=== PATIENT | male | born 1955 | race Caucasian/White ===

== ENCOUNTER → 2017-06-03 | Outpatient (CLI) | payer BC ==
[~2017-06-03] MED LIST: ACYC400 PO; ASPI325 PO; ASPIRIN; CIPR500 PO; Colace100 MG PO; DOCU100 PO; HYDACE5 PO; INDO25 PO; IRBE150 PO; IRBE75 PO; IRBESARTAN300 MG PO; LACT10SY PO; LISHYD1012 PO; LISHYD2012; LISHYD2012 PO; LISI20 PO; MAGCIT300 PO; NORT25 PO; Percocet 5-3251 EACH PO; Protonix40 MG PO; SUMA25 PO; TERAZOSIN PO; VERA120 PO; VERAPAMIL; Zestril40 MG; Zofran Odt8 MG SL
[2017-06-03 13:54] LABS: Alanine Aminotransfer (ALT/SGP 57 U/L (12-78); Albumin/Globulin Ratio 1.3 (0.8-1.8); Alk Phos 61 U/L (50-136); Anion Gap 9 mmol/L (6-16); Aspartate Aminotrans (AST/SGOT 31 U/L (12-37); Bilirubin, Total 0.5 mg/dL (0.1-1.0); Blood Urea Nitrogen 21 mg/dL (8-24); CHOL/HDL RATIO 3.1; CO2, Blood 24 mmol/L (21-32); Calcium, Blood 8.4 mg/dL (8.5-10.1); Chloride, Blood 108 mmol/L (98-108); Cholesterol 104 mg/dL (50-200); Globulin, Blood 3.1 g/dL (2.2-4.0); Glucose, Blood 92 mg/dL (70-99); HDL Cholesterol 34 mg/dL (>39); LDL/HDL RATIO 1.7; Low Density Lipoprotein Chol 58 mg/dL (0-110); Potassium, Blood 3.7 mmol/L (3.5-5.5); Sodium, Blood 141 mmol/L (136-145); Total Protein, Blood 7.1 g/dL (6.4-8.2); Triglycerides 59 mg/dL (30-160); Very Low Density Lipoprot Chol 11 mg/dL (6-32)
[2017-06-03 14:01] LABS: Bun/Creatinine Ratio 18.8 (12.0-20.0); Creatinine, Blood 1.12 mg/dL (0.60-1.20); Glomerular Filtration Rate >60 (60-); Prostate Specific Antigen 0.762 ng/mL (0.000-4.000)
== END | disposition home or self-care (01) ==
LOC: LAB 11:51
PROVIDERS: Hospitalist
DX: Z12.5 Encounter for screening for malignant neoplasm of prostate (principal); I10 Essential (primary) hypertension; E11.9 Type 2 diabetes mellitus without complications
CPT/HCPCS: 80053; 80061; 82043; 83036; G0103

== ENCOUNTER → 2018-08-07 | Outpatient (CLI) | payer BC ==
[2018-08-07 14:13] LABS: Anion Gap 5 mmol/L (6-16); Blood Urea Nitrogen 17 mg/dL (8-24); Bun/Creatinine Ratio 21.8 (12.0-20.0); CO2, Blood 28 mmol/L (21-32); Calcium, Blood 8.9 mg/dL (8.5-10.1); Chloride, Blood 105 mmol/L (98-108); Creatinine, Blood 0.78 mg/dL (0.60-1.20); Glomerular Filtration Rate >60 (60-); Glucose, Blood 95 mg/dL (70-99); Potassium, Blood 4.1 mmol/L (3.5-5.5); Sodium, Blood 138 mmol/L (136-145)
== END | disposition home or self-care (01) ==
LOC: LAB SHORT 13:13 → LAB 13:13
PROVIDERS: Hospitalist
DX: N18.3 Chronic kidney disease, stage 3 (moderate) (principal); E87.6 Hypokalemia
CPT/HCPCS: 80048

== ENCOUNTER 2018-11-21 22:32 | Emergency (ER) | payer BC ==
[~2018-11-21] VITALS: Ht 177.8 cm; Wt 121.1 kg
[2018-11-21 23:44] LABS: BASOPHILS ABSOLUTE AUTO 0.09 K/mm3 (0.00-0.23); BASOPHILS PERCENT AUTO 1 % (0-2); EOSINOPHILS PERCENT AUTO 2 % (0-6); Hematocrit 46.3 % (37.0-53.0); Hemoglobin 15.6 g/dL (13.5-17.5); IMMATURE GRAN ABSOLUTE AUTO 0.06 K/mm3 (0.00-0.10); IMMATURE GRAN PERCENT AUTO 1 % (0-1); LYMPHOCYTES ABSOLUTE AUTO 0.98 K/mm3 (0.84-5.20); LYMPHOCYTES PERCENT AUTO 9 % (21-46); MONOCYTES ABSOLUTE AUTO 0.79 K/mm3 (0.16-1.47); MONOCYTES PERCENT AUTO 7 % (4-13); Mean Corpuscular HGB 29.6 pg (26.0-34.0); Mean Corpuscular HGB Conc 33.7 g/dL (31.5-36.5); Mean Corpuscular Volume 88 fL (80-100); Mean Platelet Volume 10.2 fL (9.1-12.4); NEUTROPHILS ABSOLUTE AUTO 9.46 K/mm3 (1.96-9.15); NEUTROPHILS PERCENT AUTO 82 % (41-73); Platelet Count 263 K/mm3 (150-400); RDW Coefficient Variation 12.6 % (11.7-14.2); RDW Standard Deviation 40.6 fL (35.1-46.3); Red Blood Cell Count 5.27 M/mm3 (4.30-5.90); White Blood Cell Count 11.58 K/mm3 (4.00-11.30)
[2018-11-22 00:03] LABS: Alanine Aminotransfer (ALT/SGP 59 U/L (12-78); Albumin, Blood 4.4 g/dL (3.4-5.0); Albumin/Globulin Ratio 1.2 (0.8-1.8); Alk Phos 71 U/L (50-136); Anion Gap 7 mmol/L (6-16); Aspartate Aminotrans (AST/SGOT 41 U/L (12-37); Bilirubin, Total 0.5 mg/dL (0.1-1.0); Blood Urea Nitrogen 18 mg/dL (8-24); Bun/Creatinine Ratio 15.4 (12.0-20.0); CO2, Blood 26 mmol/L (21-32); Chloride, Blood 108 mmol/L (98-108); Creatinine, Blood 1.17 mg/dL (0.60-1.20); Globulin, Blood 3.7 g/dL (2.2-4.0); Glomerular Filtration Rate >60 (60-); Glucose, Blood 142 mg/dL (70-99); Potassium, Blood 3.6 mmol/L (3.5-5.5); Sodium, Blood 141 mmol/L (136-145); Total Protein, Blood 8.1 g/dL (6.4-8.2)
[2018-11-22] MEDS ORDERED: Verapamil ER100 MG PO (00:26)
[2018-11-22] MEDS ORDERED: POTCHL10ER PO (00:27)
[2018-11-22] MEDS ORDERED: Prinivil10 MG PO (00:27)
[2018-11-22] MEDS ORDERED: [UNRECOGNIZED DRUG - REMARK] PO (00:27)
[2018-11-22] MEDS ORDERED: FURO40 PO (00:27)
[2018-11-22] MEDS ORDERED: INDOMETHACIN PO (00:28)
[2018-11-22] MEDS ORDERED: Amlodipine Besyl5 MG PO (00:28)
[2018-11-22 00:53] LABS: Source, Urine Clean Catch
[2018-11-22 00:59] LABS: Bilirubin, Urine Neg (Neg); Blood, Urine 5+ (Neg); Glucose Qualitative, Urine Neg (Neg); Ketones, Urine 1+ (Neg); Leukocyte Esterase, Urine 1+ (Neg); Nitrite, Urine Neg (Neg); Protein, Urine 2+ (Neg); Urobilinogen, Urine 1+ (Normal)
[2018-11-22 01:02] LABS: Appearance, Urine Clear (Clear); Color, Urine Yellow (P-Yellow)
[2018-11-22 01:22] LABS: Amorphous Light (0-Heavy); Bacteria Few /hpf; Mucus Light (0-Heavy); Squamous Epithelial Cells Rare /hpf (Few); White Blood Cells, Urine Rare /hpf (0-5)
[2018-11-22] MEDS ORDERED: Colace100 MG PO (03:59)
== END 2018-11-22 04:33 | disposition home or self-care (01) ==
LOC: ER 22:32
PROVIDERS: Physician Assistant
DX: R10.9 Unspecified abdominal pain (principal); I48.91 Unspecified atrial fibrillation; I10 Essential (primary) hypertension; G43.909 Migraine, unspecified, not intractable, without status migrainosus; Z79.899 Other long term (current) drug therapy
CPT/HCPCS: 36415; 74177; 80053; 81001; 83690; 85025; 87086; 93005; 93010; 96361; 96374-59; 96375; 99284-25; J1170; J2270; J2405; J7030; Q9967

== ENCOUNTER 2018-12-15 07:10 | Day surgery (SDC) | payer BC ==
[~2018-12-15] VITALS: Ht 177.8 cm; Wt 121.0 kg
[~2018-12-15 07:10] MED LIST changes: +Amlodipine Besyl5 MG PO; +FURO40 PO; +INDOMETHACIN PO; +POTCHL10ER PO; +Prinivil10 MG PO; +Verapamil ER100 MG PO; +[UNRECOGNIZED DRUG - REMARK] PO
[2018-12-15] MEDS ORDERED: Terazosin HCl10 MG PO (07:47)
[2018-12-15] MEDS ORDERED: XARELTO20 MG PO (07:48)
[2018-12-15 09:39] LABS: Albumin, Blood 3.8 g/dL (3.4-5.0); Albumin/Globulin Ratio 1.2 (0.8-1.8); Bilirubin, Direct 0.1 mg/dL (0.0-0.3); Bilirubin, Indirect 0.5 mg/dL (0.1-0.7); Bilirubin, Total 0.6 mg/dL (0.1-1.0); Globulin, Blood 3.2 g/dL (2.2-4.0)
--- NOTE | 2018-12-15 09:43 | NUR ---
PT VERBALIZED UNDERSTANDING OF D/C INSTRUCTIONS. DISPO PAPERWORK PROVIDED IN [facility]. IV REMOVED FROM RAC WITH CATH INTACT, PRESSURE DRESSING APPLIED. BP LOWER THAN PT'S "NORMAL", ASYMPTOMATIC. DR. AKERS DIS AWARE. PT TAKEN VIA W/C TO PRIVATE VEHICLE. HERE TO DRIVE HIM HOME. UNSUCCESSFUL CARDIOVERSION, PLAN TO START AMIODARONE AND FOLLOW UP IN 2-3 WEEKS. LAXMIN AT TIME OF DISPO.
[2018-12-15 09:44] LABS: Thyroid Stimulating Hormone 2.22 uIU/mL (0.360-4.800)
== END 2018-12-17 23:45 | disposition home or self-care (01) ==
LOC: MHTC 07:10
PROVIDERS: Internal Medicine Cardiovascular Disease
PROC: 5A2204Z Restoration of Cardiac Rhythm, Single (ICD-10-PCS; principal; 2018-12-15)
DX: I48.91 Unspecified atrial fibrillation (principal); I11.9 Hypertensive heart disease without heart failure; G47.33 Obstructive sleep apnea (adult) (pediatric); E66.9 Obesity, unspecified; Z79.899 Other long term (current) drug therapy; Z79.01 Long term (current) use of anticoagulants; Z87.891 Personal history of nicotine dependence; Z68.38 Body mass index [BMI] 38.0-38.9, adult
CPT/HCPCS: 71046; 80076; 84443; 92960; 99152; 99153; J2250; J2310; J3010; J7040

== ENCOUNTER 2019-05-10 00:24 | Emergency (ER) | payer BC ==
[~2019-05-10] VITALS: Ht 177.8 cm; Wt 117.9 kg
[~2019-05-10 00:24] MED LIST changes: +Terazosin HCl10 MG PO; +XARELTO20 MG PO
[2019-05-10 01:17] LABS: Source, Urine Clean Catch
[2019-05-10] MEDS ORDERED: Esgic Tablet1 EACH PO (01:21)
[2019-05-10 01:22] LABS: BASOPHILS ABSOLUTE AUTO 0.07 K/mm3 (0.00-0.23); BASOPHILS PERCENT AUTO 1 % (0-2); EOSINOPHILS ABSOLUTE AUTO 0.23 K/mm3 (0.00-0.68); EOSINOPHILS PERCENT AUTO 3 % (0-6); Hematocrit 46.2 % (37.0-53.0); Hemoglobin 15.2 g/dL (13.5-17.5); IMMATURE GRAN ABSOLUTE AUTO 0.06 K/mm3 (0.00-0.10); IMMATURE GRAN PERCENT AUTO 1 % (0-1); LYMPHOCYTES ABSOLUTE AUTO 1.17 K/mm3 (0.84-5.20); LYMPHOCYTES PERCENT AUTO 14 % (21-46); MONOCYTES ABSOLUTE AUTO 0.66 K/mm3 (0.16-1.47); MONOCYTES PERCENT AUTO 8 % (4-13); Mean Corpuscular HGB 29.7 pg (26.0-34.0); Mean Corpuscular HGB Conc 32.9 g/dL (31.5-36.5); Mean Corpuscular Volume 90 fL (80-100); Mean Platelet Volume 11.1 fL (9.1-12.4); NEUTROPHILS ABSOLUTE AUTO 6.06 K/mm3 (1.96-9.15); NEUTROPHILS PERCENT AUTO 74 % (41-73); Platelet Count 195 K/mm3 (150-400); RDW Coefficient Variation 12.9 % (11.7-14.2); RDW Standard Deviation 42.5 fL (35.1-46.3); Red Blood Cell Count 5.12 M/mm3 (4.30-5.90); White Blood Cell Count 8.25 K/mm3 (4.00-11.30)
[2019-05-10 01:23] LABS: Bilirubin, Urine Neg (Neg); Blood, Urine Neg (Neg); Glucose Qualitative, Urine Neg (Neg); Ketones, Urine Neg (Neg); Leukocyte Esterase, Urine Neg (Neg); Nitrite, Urine Neg (Neg); Protein, Urine Neg (Neg); Urobilinogen, Urine NORM (Normal)
[2019-05-10 01:26] LABS: Color, Urine Yellow (P-Yellow)
[2019-05-10 01:30] LABS: Appearance, Urine Hazy (Clear)
[2019-05-10 01:31] LABS: Amorphous Heavy (0-Heavy); Bacteria Few /hpf; Red Blood Cells, Urine Not Seen /hpf (0-2); Squamous Epithelial Cells Few /hpf (Few); White Blood Cells, Urine Rare /hpf (0-5)
[2019-05-10 01:42] LABS: Alanine Aminotransfer (ALT/SGP 47 U/L (12-78); Albumin, Blood 4.3 g/dL (3.4-5.0); Albumin/Globulin Ratio 1.2 (0.8-1.8); Alk Phos 72 U/L (50-136); Anion Gap 8 mmol/L (6-16); Aspartate Aminotrans (AST/SGOT 27 U/L (12-37); Bilirubin, Total 0.3 mg/dL (0.1-1.0); Blood Urea Nitrogen 19 mg/dL (8-24); Bun/Creatinine Ratio 14.5 (12.0-20.0); CO2, Blood 26 mmol/L (21-32); Calcium, Blood 9.2 mg/dL (8.5-10.1); Chloride, Blood 109 mmol/L (98-108); Creatinine, Blood 1.31 mg/dL (0.60-1.20); Globulin, Blood 3.6 g/dL (2.2-4.0); Glomerular Filtration Rate 59 (60-); Glucose, Blood 145 mg/dL (70-99); Potassium, Blood 3.6 mmol/L (3.5-5.5); Sodium, Blood 143 mmol/L (136-145); Total Protein, Blood 7.9 g/dL (6.4-8.2); Troponin I <0.015 ng/mL (0.000-0.040)
== END 2019-05-10 03:24 | disposition home or self-care (01) ==
LOC: ER 00:24
PROVIDERS: Emergency Medicine
DX: R10.9 Unspecified abdominal pain (principal); I10 Essential (primary) hypertension; G43.909 Migraine, unspecified, not intractable, without status migrainosus
CPT/HCPCS: 36415; 74177; 80053; 81001; 83690; 84484; 85025; 93005; 93010; 96374-59; 96375; 99284-25; J1170; J2405; Q9967

== ENCOUNTER 2019-12-09 03:46 | Emergency (ER) | payer BC ==
[~2019-12-09] VITALS: Ht 177.8 cm; Wt 117.9 kg
[~2019-12-09 03:46] MED LIST changes: +Esgic Tablet1 EACH PO
[2019-12-09] MEDS ORDERED: LISI20 PO (04:13)
[2019-12-09] MEDS ORDERED: ZESTRIL40 MG PO (04:13)
[2019-12-09] MEDS ORDERED: Indomethacin25 MG PO (04:14)
[2019-12-09] MEDS ORDERED: EMGALITY120 MG/1 M (04:15)
[2019-12-09] MEDS ORDERED: TROKENDI PO (04:15)
[2019-12-09] MEDS ORDERED: Amiodarone HCl200 MG PO (04:16)
[2019-12-09] MEDS ORDERED: METO50ER PO (04:16)
== END 2019-12-09 05:31 | disposition left against medical advice (07) ==
LOC: ER 03:46
DX: Z53.21 Procedure and treatment not carried out due to patient leaving prior to being seen by health care provider (principal)

== ENCOUNTER → 2020-06-19 | Outpatient (CLI) | payer BC ==
[~2020-06-19] MED LIST changes: +Amiodarone HCl200 MG PO; +EMGALITY120 MG/1 M; +Indomethacin25 MG PO; +METO50ER PO; +TROKENDI PO; +ZESTRIL40 MG PO
[2020-06-19 20:28] LABS: Anion Gap 9 mmol/L (6-16); Blood Urea Nitrogen 21 mg/dL (8-24); Bun/Creatinine Ratio 18.6 (12.0-20.0); CO2, Blood 22 mmol/L (21-32); Calcium, Blood 8.9 mg/dL (8.5-10.1); Chloride, Blood 109 mmol/L (98-108); Creatinine, Blood 1.13 mg/dL (0.60-1.20); Glomerular Filtration Rate >60 (60-); Glucose, Blood 89 mg/dL (70-99); Potassium, Blood 3.7 mmol/L (3.5-5.5); Prostate Specific Antigen 0.394 ng/mL (0.000-4.000); Sodium, Blood 140 mmol/L (136-145)
== END | disposition home or self-care (01) ==
LOC: LAB SHORT 15:00 → LAB 15:00
PROVIDERS: Hospitalist
DX: Z12.5 Encounter for screening for malignant neoplasm of prostate (principal); N18.31 Chronic kidney disease, stage 3a
CPT/HCPCS: 80048; G0103

== ENCOUNTER 2020-09-10 17:07 | Emergency (ER) | payer BC ==
[~2020-09-10] VITALS: Ht 177.8 cm; Wt 117.9 kg
[2020-09-10 17:22] LABS: Source, Urine Clean Catch
[2020-09-10 17:30] LABS: BASOPHILS ABSOLUTE AUTO 0.06 K/mm3 (0.00-0.23); BASOPHILS PERCENT AUTO 1 % (0-2); EOSINOPHILS ABSOLUTE AUTO 0.23 K/mm3 (0.00-0.68); EOSINOPHILS PERCENT AUTO 3 % (0-6); Hematocrit 47.1 % (37.0-53.0); Hemoglobin 15.6 g/dL (13.5-17.5); IMMATURE GRAN ABSOLUTE AUTO 0.02 K/mm3 (0.00-0.10); IMMATURE GRAN PERCENT AUTO 0 % (0-1); LYMPHOCYTES ABSOLUTE AUTO 1.23 K/mm3 (0.84-5.20); LYMPHOCYTES PERCENT AUTO 16 % (21-46); MONOCYTES ABSOLUTE AUTO 0.81 K/mm3 (0.16-1.47); MONOCYTES PERCENT AUTO 10 % (4-13); Mean Corpuscular HGB 29.2 pg (26.0-34.0); Mean Corpuscular HGB Conc 33.1 g/dL (31.5-36.5); Mean Corpuscular Volume 88 fL (80-100); Mean Platelet Volume 10.8 fL (9.1-12.4); NEUTROPHILS ABSOLUTE AUTO 5.61 K/mm3 (1.96-9.15); NEUTROPHILS PERCENT AUTO 70 % (41-73); Platelet Count 205 K/mm3 (150-400); RDW Coefficient Variation 12.3 % (11.7-14.2); RDW Standard Deviation 39.9 fL (35.1-46.3); Red Blood Cell Count 5.35 M/mm3 (4.30-5.90); White Blood Cell Count 7.96 K/mm3 (4.00-11.30)
[2020-09-10 17:32] LABS: Appearance, Urine Hazy (Clear); Bilirubin, Urine Neg (Neg); Color, Urine Yellow (P-Yellow); Glucose Qualitative, Urine Neg (Neg); Ketones, Urine Neg (Neg); Nitrite, Urine Neg (Neg); Urobilinogen, Urine NORM (Normal)
[2020-09-10 17:43] LABS: Blood, Urine 5+ (Neg); Leukocyte Esterase, Urine 1+ (Neg); Protein, Urine 1+ (Neg); Specific Gravity, Urine 1.015 (1.003-1.022)
[2020-09-10 17:50] LABS: Bacteria Many /hpf; Red Blood Cells, Urine 50-100 /hpf (0-2); Squamous Epithelial Cells Rare /hpf (Few)
[2020-09-10 17:52] LABS: Alanine Aminotransfer (ALT/SGP 53 U/L (12-78); Albumin, Blood 4.2 g/dL (3.4-5.0); Albumin/Globulin Ratio 1.2 (0.8-1.8); Alk Phos 64 U/L (50-136); Anion Gap 4 mmol/L (6-16); Aspartate Aminotrans (AST/SGOT 26 U/L (12-37); Bilirubin, Total 0.6 mg/dL (0.1-1.0); Blood Urea Nitrogen 19 mg/dL (8-24); Bun/Creatinine Ratio 19.4 (12.0-20.0); CO2, Blood 28 mmol/L (21-32); Chloride, Blood 109 mmol/L (98-108); Creatinine, Blood 0.98 mg/dL (0.60-1.20); Globulin, Blood 3.6 g/dL (2.2-4.0); Glomerular Filtration Rate >60 (60-); Glucose, Blood 122 mg/dL (70-99); Potassium, Blood 3.8 mmol/L (3.5-5.5); Sodium, Blood 141 mmol/L (136-145); Total Protein, Blood 7.8 g/dL (6.4-8.2)
[2020-09-10] MEDS ORDERED: XARELTO20 MG PO (18:18)
== END 2020-09-10 20:15 | disposition home or self-care (01) ==
LOC: ER 17:07
PROVIDERS: Physician Assistant
DX: N20.2 Calculus of kidney with calculus of ureter (principal); I10 Essential (primary) hypertension; Z88.5 Allergy status to narcotic agent; Z79.899 Other long term (current) drug therapy
CPT/HCPCS: 36415; 74176; 80053; 81001; 83690; 85025; 87077; 87086; 87147; 87186; 99284-25; J7030

== ENCOUNTER 2021-08-25 06:10 | Day surgery (SDC) | payer BC ==
[~2021-08-25] VITALS: Ht 177.8 cm; Wt 111.9 kg
--- NOTE | 2021-08-25 07:27 | NUR ---
08/25/21 0726 Cristal Sawyer MONITOR INTACT WITH CONTINUOUS PULSE OXIMETRY AND INTERMITTENT BP.
--- NOTE | 2021-08-25 08:18 | NUR ---
Discharge instructions reviewed with patient. Patient verbalizes understanding. Copy given to patient to take home. Discharged via wheelchair to private car for ride home. TOLERATED JUICE WELL, NO PAIN.
== END 2021-08-25 08:23 | disposition home or self-care (01) ==
LOC: ORSCMMR 06:10 → ORD 08:00 → ORSCSDS 08:15 → ORD 08:15 → ORSCMMR 08:15
PROVIDERS: Surgery
PROC: 0DJD8ZZ Inspection of Lower Intestinal Tract, Via Natural or Artificial Opening Endoscopic (ICD-10-PCS; principal; 2021-08-25 07:30)
DX: Z12.11 Encounter for screening for malignant neoplasm of colon (principal); G47.33 Obstructive sleep apnea (adult) (pediatric); I13.10 Hypertensive heart and chronic kidney disease without heart failure, with stage 1 through stage 4 chronic kidney disease, or unspecified chronic kidney disease; N18.30 Chronic kidney disease, stage 3 unspecified; I48.0 Paroxysmal atrial fibrillation; E66.9 Obesity, unspecified; Z79.01 Long term (current) use of anticoagulants; Z68.35 Body mass index [BMI] 35.0-35.9, adult; Z79.899 Other long term (current) drug therapy
CPT/HCPCS: J1100; J2001; J2370; J2405; J2704; J3010; J7120

== ENCOUNTER 2022-11-12 13:52 | Emergency (ER) | payer OTHER ==
[~2022-11-12] VITALS: Ht 177.8 cm; Wt 111.1 kg
[2022-11-12 14:25] LABS: BASOPHILS ABSOLUTE AUTO 0.07 K/mm3 (0.00-0.23); BASOPHILS PERCENT AUTO 1 % (0-2); EOSINOPHILS ABSOLUTE AUTO 0.21 K/mm3 (0.00-0.68); EOSINOPHILS PERCENT AUTO 3 % (0-6); Hematocrit 43.8 % (37.0-53.0); IMMATURE GRAN ABSOLUTE AUTO 0.02 K/mm3 (0.00-0.10); IMMATURE GRAN PERCENT AUTO 0 % (0-1); LYMPHOCYTES ABSOLUTE AUTO 1.23 K/mm3 (0.84-5.20); LYMPHOCYTES PERCENT AUTO 17 % (21-46); MONOCYTES ABSOLUTE AUTO 0.79 K/mm3 (0.16-1.47); MONOCYTES PERCENT AUTO 11 % (4-13); Mean Corpuscular HGB 29.8 pg (26.0-34.0); Mean Corpuscular HGB Conc 34.2 g/dL (31.5-36.5); Mean Corpuscular Volume 87 fL (80-100); Mean Platelet Volume 10.6 fL (9.1-12.4); NEUTROPHILS ABSOLUTE AUTO 5.07 K/mm3 (1.96-9.15); NEUTROPHILS PERCENT AUTO 69 % (41-73); Platelet Count 220 K/mm3 (150-400); RDW Coefficient Variation 12.8 % (11.7-14.2); RDW Standard Deviation 40.3 fL (35.1-46.3); Red Blood Cell Count 5.04 M/mm3 (4.30-5.90); White Blood Cell Count 7.39 K/mm3 (4.00-11.30)
[2022-11-12 15:03] LABS: Albumin, Blood 3.9 g/dL (3.4-5.0); Albumin/Globulin Ratio 1.2 (0.8-1.8); Bilirubin, Total 0.6 mg/dL (0.1-1.0); Bun/Creatinine Ratio 17.3 (12.0-20.0); Calcium, Blood 8.7 mg/dL (8.5-10.1); Creatinine, Blood 1.1 mg/dL (0.60-1.20); Globulin, Blood 3.2 g/dL (2.2-4.0); Potassium, Blood 3.8 mmol/L (3.5-5.5); Total Protein, Blood 7.1 g/dL (6.4-8.2)
[2022-11-12] MEDS ORDERED: AMLO5 PO (15:50)
[2022-11-12 16:00] VITALS: BP 131/84
== END 2022-11-12 17:12 | disposition home or self-care (01) ==
LOC: ER 13:52
PROVIDERS: Physician Assistant
DX: I48.91 Unspecified atrial fibrillation (principal); I10 Essential (primary) hypertension; Z88.0 Allergy status to penicillin; Z88.8 Allergy status to other drugs, medicaments and biological substances; Z79.01 Long term (current) use of anticoagulants; Z79.899 Other long term (current) drug therapy
CPT/HCPCS: 71045; 80053; 83735; 84484; 85025; 93005; 93010; J2704; J7030

== ENCOUNTER 2024-04-16 09:55 | Day surgery (SDC) | payer OTHER ==
[~2024-04-16] VITALS: Ht 177.8 cm; Wt 117.3 kg
[~2024-04-16 09:55] MED LIST changes: +AMLO5 PO; +Lidocaine HCl 2% 10 ML SDA ONE
[2024-04-16] MEDS ORDERED: propofoL 20 ML IV ONE (10:29)
[2024-04-16] MEDS ORDERED: Lactated Ringer's 1,000 ML IV ONE ×2 (10:30→12:45)
[2024-04-16] MEDS ORDERED: NS 0 ML IV ONE (11:02)
[2024-04-16] MEDS ORDERED: CeFAZolin Sodium 2,000 MG VIAL ONE ×2 (11:02→11:51)
[2024-04-16] MEDS ORDERED: Tambocor100 MG PO (11:23)
[2024-04-16] MEDS ORDERED: Ropivacaine 0.5% HCL/PF 5 MG/ML 30ML Vial ONE (11:27)
[2024-04-16] MEDS ORDERED: NS 500 ML IV ONE ×3 (11:34→16:59)
[2024-04-16] MEDS ORDERED: FentaNYL Citrate 50 MCG/ML 2 ML Injection ONE ×3 (11:43→15:14)
[2024-04-16] MEDS ORDERED: Midazolam HCl 1MG / ML 2ML Vial ONE (11:44)
[2024-04-16] MEDS ORDERED: NS 50 ML IV ONE (11:51)
--- NOTE | 2024-04-16 12:21 | NUR ---
04/16/24 1221 Talisha Ruiz S TIME OUT DONE ON PT.PRIOR TO BLOCK. PT.WAS ON 02 2L/NC & MONITORING HIS SATS. V.S.S. PT. TOLERATED BLOCK WELL. SEE CHART FOR BLOCK INFORMATION
[2024-04-16] MEDS ORDERED: Dexamethasone Sod Phos 10 MG/ML 1ML VIAL ONE ×2 (13:03→16:19)
[2024-04-16] MEDS ORDERED: Ondansetron HCl 2 MG / ML 2ML Vial ONE ×2 (13:03→14:23)
[2024-04-16] MEDS ORDERED: HYDROmorphone HCl/Pf 1MG SYR ONE (14:26)
[2024-04-16] MEDS ORDERED: HYDROcodone 5-APAP 325 TAB ONE (14:28)
--- NOTE | 2024-04-16 14:44 | NUR ---
04/16/24 1444 Carolyn Hartmann 0.5MG OF IV DILAUDID GIVEN VIA IV, SLOWLY. PT STATED THAT HIS PAIN LEVEL IS AT A 9/10. PAIN LOCATED TO THE R ARM. PT DESCRIBES THE PAIN SHARP AT THE ELBOW. PT ENCOURAGED TO EAT A SNACK SO HE CAN TAKE A 5/325MG OF NORCO, SO HE DOESN'T HAVE NAUSEA.
[2024-04-16] MEDS ORDERED: Morphine Sulfate 4 MG/1 ML Injection ONE (15:04)
[2024-04-16] MEDS ORDERED: Lidocaine HCl 2% 10 ML SDA ONE (16:20)
[2024-04-16] MEDS ORDERED: EPINEPhrine HCl 1 MG/ML 1ML Amp ONE (16:20)
[2024-04-16 16:59] VITALS: BP 160/78
== END 2024-04-16 17:13 | disposition home or self-care (01) ==
LOC: ORSCSDS 09:55
PROVIDERS: Orthopaedic Surgery
PROC: 0LM40ZZ Reattachment of Left Upper Arm Tendon, Open Approach (ICD-10-PCS; principal; 2024-04-16 11:15)
DX: S46.212A Strain of muscle, fascia and tendon of other parts of biceps, left arm, initial encounter (principal); X50.0XXA Overexertion from strenuous movement or load, initial encounter; I12.9 Hypertensive chronic kidney disease with stage 1 through stage 4 chronic kidney disease, or unspecified chronic kidney disease; N18.30 Chronic kidney disease, stage 3 unspecified; N40.0 Benign prostatic hyperplasia without lower urinary tract symptoms; E66.9 Obesity, unspecified; Z68.37 Body mass index [BMI] 37.0-37.9, adult; I48.0 Paroxysmal atrial fibrillation; Z79.01 Long term (current) use of anticoagulants; G47.33 Obstructive sleep apnea (adult) (pediatric); Z79.899 Other long term (current) drug therapy
CPT/HCPCS: A9270; C1713; J0171; J0690; J1100; J1171; J2003; J2250; J2270; J2405; J2704; J2795; J3010; J7040; J7120

== ENCOUNTER → 2024-11-07 | Outpatient (CLI) | payer OTHER ==
[~2024-11-07] MED LIST changes: -Lidocaine HCl 2% 10 ML SDA ONE; +Tambocor100 MG PO
[2024-11-07 21:28] LABS: Anion Gap 7 mmol/L (3-11); Blood Urea Nitrogen 17 mg/dL (8-24); Bun/Creatinine Ratio 14.7 (12.0-20.0); CO2, Blood 32 mmol/L (21-32); Calcium, Blood 9.1 mg/dL (8.5-10.1); Chloride, Blood 104 mmol/L (98-108); Creatinine, Blood 1.16 mg/dL (0.60-1.20); Glomerular Filtration Rate 69 (60-); Glucose, Blood 114 mg/dL (70-99); Potassium, Blood 4.2 mmol/L (3.5-5.5); Prostate Specific Antigen 0.649 ng/mL (0.000-4.000); Sodium, Blood 139 mmol/L (136-145)
== END ==
LOC: LAB 17:25 → LAB SHORT 17:25
PROVIDERS: Hospitalist
DX: N40.0 Benign prostatic hyperplasia without lower urinary tract symptoms (principal); I12.9 Hypertensive chronic kidney disease with stage 1 through stage 4 chronic kidney disease, or unspecified chronic kidney disease
CPT/HCPCS: 80048; 84153